=== PATIENT | female | born 2000 | race Caucasian/White ===

== ENCOUNTER 2024-08-08 10:11 | Outpatient (CLI) | payer OTHER, SELFPAY ==
--- NOTE | ~2024-08-08 | US_ITS ---
Limited Abdominal Sonogram: Real-time sonographic imaging of the right upper quadrant was performed. Clinical History: Right upper quadrant pain Findings: The liver appears heterogeneous, with no evidence of mass lesion or bile duct dilatation. Main portal vein demonstrates normal direction of flow. The gallbladder is well distended, and appear s normal with no evidence of gallstone or wall thickening. The common bile duct measures 3 mm. The v isualized pancreas, aorta, and IVC are unremarkable. Impression: Suspected fatty infiltration of the liver. Reviewed, dictated and finalized at location M. Impression: Suspected fatty infiltration of the liver.
== END 2024-08-08 10:12 | disposition home or self-care (01) ==
LOC: MICIMG 10:13
PROVIDERS: PCP Registered Nurse; Visit Provider Family Medicine
DX: R10.11 Right upper quadrant pain (principal)
CPT/HCPCS: 76705